=== PATIENT | male | born 2000 | race Caucasian/White ===

== ENCOUNTER 2022-04-15 17:45 | Emergency (ER) | payer OTHER ==
[~2022-04-15] VITALS: Ht 193 cm; Wt 79.4 kg
[2022-04-15] MEDS ORDERED: ACET-683 PO (18:02)
[2022-04-15 21:35] VITALS: BP 120/65
== END 2022-04-15 21:36 | disposition home or self-care (01) ==
LOC: M ED 17:45
DX: S63.92XA Sprain of unspecified part of left wrist and hand, initial encounter (principal); Y93.83 Activity, rough housing and horseplay